=== PATIENT | male | born 1960 | race Caucasian/White ===

== ENCOUNTER 2017-08-10 08:02 | Day surgery (SDC) | payer BC, SELFPAY ==
[2017-08-07 10:16] VITALS: BMI 28.4
[2017-08-10 08:27] VITALS: BP 133/90; PULSE 73; RESP 18; TEMP 36.9; O2SAT 98
[2017-08-10 08:52] VITALS: O2SAT 98
[2017-08-10 09:14] VITALS: BP 110/81; PULSE 78; RESP 18; TEMP 36.7; O2SAT 97
--- NOTE | 2017-08-10 09:15 | P.PCN_ITS ---
[facility] Procedure Note Procedure Note:: Colonoscopy Procedure Report: Colonoscopy Endoscopist: Easton Braun II, MD Referring physician: Gustavo Tyler MD Date of Procedure: August 10, 2017 Equipment: Olympus 180 variable stiffness pediatric colonoscope Sedation: MAC sedation Indication: Mr. Sanders is a 56-year-old gentleman who is here for follow-up screening/surveillance colonoscopy. He did have a colonoscopy 5 years ago (Dr. Gayr Quintana) which was normal. He reports no abdominal pain, weight loss, change in his bowel habits or rectal bleeding. He reports no family history of colon cancer. Procedure: Prior to the procedure, a history and physical exam was performed, and patient' s medications and allergies were reviewed. The risks, benefits and alternatives of the sedation and procedure were discussed with the patient. All questions were answered and informed consent was obtained. The patient was brought to the procedure room. Patient identification and proposed procedure were verified by the physician and the nurse. The patient was placed in a left lateral decubitus position and the scope was passed under direct vision. Throughout the procedure, the patient's blood pressure, pulse, and oxygen saturations were monitored continuously. The colonoscopy was accomplished without difficulty. The patient tolerated the procedure well. Findings: On digital rectal examination there was normal rectal tone. There were no external hemorrhoids. The prostate was 2+, smooth, soft, symmetric without nodules. The colonoscope was introduced through the anal canal to the rectum and advanced to the cecum. The ileocecal valve and appendiceal orifice were identified. The scope was advanced a short distance into the ileum which appeared grossly normal. The scope was then withdrawn into the colon. The cecum , ascending, transverse, descending, sigmoid and rectum were grossly normal. There were no mucosal abnormalities identified. Upon retroflexion within the rectum there were grade 1 internal hemorrhoids. Impression: 1. Normal colonoscopy with intubation of the terminal ileum 2. Grade 1 internal hemorrhoids Plan: The patient will not require screening/surveillance colonoscopy again for 10 years by ACS guidelines. I would encourage fiber supplementation on a long-term daily maintenance basis.
[2017-08-10 09:25] VITALS: BP 124/83; PULSE 78; RESP 18; O2SAT 97
[2017-08-10 09:39] VITALS: BP 118/82; PULSE 76; RESP 18; TEMP 36.6; O2SAT 97
== END 2017-08-10 09:14 | disposition home or self-care (01) ==
LOC: OUTP 08:03
PROVIDERS: Family Provider Family Medicine; PCP Family Medicine; Visit Provider Internal Medicine Gastroenterology
PROC: 0DJD8ZZ Inspection of Lower Intestinal Tract, Via Natural or Artificial Opening Endoscopic (ICD-10-PCS; CPT 45378; principal; 2017-08-10 09:00)
DX: Z12.11 Encounter for screening for malignant neoplasm of colon (principal); K64.0 First degree hemorrhoids
CPT/HCPCS: 45378